=== PATIENT | male | born 1985 | race Caucasian/White ===

== ENCOUNTER 2018-01-06 17:28 | Emergency (ER) | payer OTHER, SELFPAY ==
[2018-01-06 17:30] VITALS: BP 117/74; PULSE 74; PULSE 76; RESP 14; TEMP 36.7; O2SAT 98; O2SAT 99; BMI 26.8
--- NOTE | 2018-01-06 18:15 | RAD_ITS ---
STUDY: X-RAY - RIGHT FEMUR REASON FOR STUDY: Male, 32 years old. Leg swelling and unable to bear weight without pain 9 days after kicked by horse. TECHNIQUE: Radiological exam, femur, minimum 2 views COMPARISON: None. FINDINGS: Normal visualized femur. There is suprapatellar superficial anterior soft tissue swelling. There is no demonstrated fracture or destructive process. RAD/Femur Min 2 Views IMPRESSION: Anterior superficial suprapatellar soft tissue swelling. No fracture of the right femur. Electronically Signed: Dixon Hurd MD at 18:56 EDT , Service support ,
--- NOTE | 2018-01-06 19:44 | US_ITS ---
STUDY: VENOUS DOPPLER ULTRASOUND - RIGHT LOWER EXTREMITY REASON FOR EXAM: Male, 32 years old. Injury TECHNIQUE: Ultrasound evaluation of the deep vein system to include mars-scale imaging and compression was performed. Mars-scale imaging and Doppler sonographic evaluation, including duplex spectral analysis and qualitative color flow sonography, was performed. COMPARISON: None. FINDINGS: Common Femoral Vein: Normal compression, spontaneity and augmentation. Normal color Doppler. Common Femoral Vein/Greater Saphenous Junction: Normal compression, Deep Femoral Vein: Normal compression, Femoral Proximal: Normal compression, spontaneity Femoral Middle: Normal compression, spontaneity and augmentation. Normal color Doppler. Femoral Distal: Normal compression, spontaneity Popliteal Vein: Normal compression, spontaneity and augmentation. Normal color Doppler. Posterior Tibial Vein: Normal compression, spontaneity Peroneal Vein: Normal compression, spontaneity In the region of injury or area of interest there is no definitive evidence of underlying hematoma. US/Venous Duplex Imag/Limited/Uni IMPRESSION: Normal venous Doppler ultrasound of the lower extremity. Electronically Signed: Nyla Laurent MD at 21:25 EDT Tel , Service support ,
[2018-01-06 20:25] VITALS: BP 120/75; PULSE 80; RESP 14; O2SAT 99
[2018-01-06] MEDS: Naproxen 500 MG Tablet PO (21:34)
--- NOTE | 2018-01-06 21:49 | ED.VISSUMM ---
- ER Visit Summary Date of Service: 01/06/18 Chief Complaint: Right thigh pain History of Present Illness: The patient is a 32 M who was kicked by a horse in the right thigh approximately 9 days ago. Patient states the swelling been coming down and he been doing well. He is able to run last night. Today he had sudden spasm of pain and has had difficulty moving his leg since that time. He also reports increased swelling. He denies paresthesias. Physical Examination: Vital signs unremarkable. Patient sitting upright in bed no acute distress. Head neck examination is normal. Heart is regular rate and rhythm. Lung sounds are clear. Abdomen is soft nontender. Right lower extremity examination reveals edema and old appearing ecchymosis to the right thigh. He has no tenderness at the hip or knee. He has strong distal pulses and normal sensation. Test Results: Right femur x-rays were obtained per nursing protocol. There is anterior superficial suprapatellar soft tissue swelling. No evidence of fracture. Venous ultrasound of the right leg is obtained and shows no evidence of DVT. Emergency Department Course and Treatment: Patient had initially declined pain medication but after testing did request something light for pain. He is given a dose of Naprosyn. On repeat examination I am able to hold the patient's leg up for him and he is able to maintain it in that position. He has good muscle tone. Jerome wrap will be placed and he will be given crutches. He will be given naproxen for pain. Referred to orthopedics for follow-up as needed. Treatment Plan: [] Disposition: Discharge Impression: Right thigh strain This note was generated with [employer] dictation software. It may contain incorrect words, spelling, and punctuation that were not noted in review of the chart prior to signing ED Disposition - Plan for ED Patient: Chief Complaint: Lower Extremity Injury Referrals: Niraj Marie MD [Primary Care Provider] -
--- NOTE | 2018-01-06 21:51 | ED.DEP ---
ED Disposition - Plan for ED Patient: Disposition: Home or Assisted Living Chief Complaint: Lower Extremity Injury Instructions: ED Contusion Lower Ext Prescriptions: Naproxen [Naprosyn] 500 mg PO BID PRN PRN #20 tablet PRN Reason: Pain Referrals: Niraj Marie MD [Primary Care Provider] - 3-5 Days
[2018-01-06 22:12] VITALS: BP 130/70; PULSE 80; RESP 14; O2SAT 99
== END 2018-01-06 22:13 | disposition home or self-care (01) ==
PROVIDERS: Emergency Provider Emergency Medicine; Family Provider Family Medicine; PCP Family Medicine
DX: S76.911A Strain of unspecified muscles, fascia and tendons at thigh level, right thigh, initial encounter (principal); W55.12XA Struck by horse, initial encounter; Y93.9 Activity, unspecified; Y92.9 Unspecified place or not applicable
CPT/HCPCS: 73552; 93971; 99283